=== PATIENT | female | born 1990 | race African-American/Black ===

== ENCOUNTER 2017-08-23 20:11 | Emergency (ER) | payer MEDICAID ==
[~2017-08-23] VITALS: Ht 152.4 cm; Wt 53.5 kg
[2017-08-23] MEDS ORDERED: Ondansetron ODT 8mg tab ORAL ONE (20:45)
--- NOTE | 2017-08-23 20:55 | Emergency Room Report ---
History of Present Illness General Chief Complaint: Abdominal Pain Source: Patient Present Illness HPI Is a 27-year-old female with history of seizure and previous pancreatitis. She presents with chief complaint of abdominal pain. Onset today. Unable to keep anything down. She said she did have 2 beers yesterday. Nausea and vomiting all day. No blood in it. No diarrhea. Pain is sharp and crampy mostly left upper quadrant. Her main concern is that she has seizure and unable to take her Keppra. Pain is 9 out of 10. Allergies: Coded Allergies: AMOXICILLIN (Verified Allergy, Unknown, 08/23/17) PENICILLINS (Verified Allergy, Unknown, 08/23/17) Uncoded Allergies: ALL ABX WITH "CILLINS" (Allergy, Unknown, 08/23/17) Patient History Past Medical History: see triage record, old chart reviewed, seizures Past Surgical History: other Pertinent Family History: none Social History: Denies: smoking Last Menstrual Period: last month, on control Now: No Immunizations: other Reviewed Nursing Documentation: PMH: Agreed; PSxH: Agreed Nursing Documentation-PMH Hx Seizures: Yes Review of Systems Eye: Denies: eye pain, blurred vision ENT: Denies: ear pain, nose congestion, throat swelling Respiratory: Denies: cough, shortness of breath Cardiovascular: Denies: chest pain, palpitations Gastrointestinal: Reports: abdominal pain, nausea, vomiting; Denies: diarrhea Musculoskeletal: Denies: back pain, joint pain Skin: Denies: rash Neurological: Denies: headache, numbness Endocrine: Denies: increased thirst, increased urine Hematologic/Lymphatic: Denies: easy bruising All Other Systems: negative except mentioned in HPI Physical Exam Vital Signs Date Time Temp Pulse Resp B/P (MAP) Pulse Ox O2 Delivery O2 Flow Rate FiO2 08/23/17 20:15 98.5 86 18 134/74 98 Room Air 98.4 vitals normal Sp02 EP Interpretation: reviewed, normal General Appearance: well appearing, no apparent distress, alert Head: normocephalic, atraumatic Eyes: bilateral eye PERRL, bilateral eye EOMI ENT: hearing grossly normal, normal pharynx Neck: full range of motion, supple, no meningismus Respiratory: chest non-tender, lungs clear, normal breath sounds Cardiovascular #1: regular rate, rhythm, no murmur Gastrointestinal: no mass, no organomegaly, no bruit, non-distended, tenderness - left upper quadrant, decreased bowel sounds Musculoskeletal: back normal, gait/station normal, normal range of motion Psychiatric: mood/affect normal Skin: warm/dry Medical Decision Making Diagnostic Impression: Primary Impression: Abdominal pain Qualified Codes: R10.84 - Generalized abdominal pain ER Course Patient with abdominal pain. Now bowel sounds hyperactive and gurgling. Most likely beginning of a gastroenteritis. Pain is well-controlled. No evidence of obstruction. No evidence of acute abdomen. No surgical issue right now. Lab Results Impression labs normal Last Vital Signs Date Time Temp Pulse Resp B/P (MAP) Pulse Ox O2 Delivery O2 Flow Rate FiO2 08/23/17 20:15 98.5 86 18 134/74 98 Room Air 98.4 Status: improved Disposition: HOME, SELF-CARE Condition: Stable Scripts Ondansetron (Zofran) 4 Mg Tablet 4 MG ORAL Q6H PRN for Nausea & Vomiting, #10 TAB 0 Refills Prov: CHASIDY GOODEN M.D. 08/23/17 Hydrocodone/Acetaminophen 5-325* (HYDROCODONE/ACETAMINOPHEN 5-325*) 1 Each Tablet 1 TAB ORAL Q6H PRN for For Pain, #10 TAB 0 Refills Prov: CHASIDY GOODEN M.D. 08/23/17 Patient Instructions: Abdominal Pain, Adult Additional Instructions: Follow-up your DrJeyson in 2-3 days. Return for fever, pain in the right lower quadrant or symptom not better in 12-24 hours. CHASIDY GOODEN M.D. Aug 23, 2017 20:55
[2017-08-23] MEDS ORDERED: levETIRAcetam 1,000mg/NS100ml 100 ML IVPB ONE (21:00)
[2017-08-23] MEDS ORDERED: Morphine Sulfate 4mg/ml Inj IVP ONE ×2 (21:00→22:30)
[2017-08-23 21:20] LABS: APPEARANCE,URINE CLEAR; BILIRUBIN, URINE NEGATIVE (NEGATIVE); GLUCOSE, URINE (UA) NEGATIVE (NEGATIVE); KETONES,URINE 4+ (NEGATIVE); LEUKOCYTE ESTERASE ,URINE 1+ (NEGATIVE); NITRITE,URINE NEGATIVE (NEGATIVE); PH,URINE 6 (4.5-8.0); PROTEIN,URINE 2+ (NEGATIVE); UROBILINOGEN,URINE 1 MG/DL (0.0-1.0)
[2017-08-23 21:21] LABS: COLOR,URINE YELLOW
[2017-08-23 21:46] LABS: BASOPHILS % (AUTO) 1.4 % (0.0-2.0); HEMATOCRIT 42.2 % (37.0-47.0); HEMOGLOBIN 14.5 G/DL (12.0-16.0); LYMPHOCYTES % (AUTO) 11.4 % (20.0-45.0); MEAN CORPUSCULAR VOLUME 84 FL (80-99); MONOCYTES % (AUTO) 4.7 % (1.0-10.0); NEUTROPHILS % (AUTO) 82.4 % (45.0-75.0); PLATELET COUNT 211 K/UL (150-450); RED BLOOD COUNT 5.02 M/UL (4.20-5.40); RED CELL DISTRIBUTION WIDTH 13.7 % (11.6-14.8)
[2017-08-23 21:56] LABS: ANION GAP 12 mmol/L (5-15); BLOOD UREA NITROGEN 12 mg/dL (7-18); CALCIUM 9.5 MG/DL (8.5-10.1); CARBON DIOXIDE 23 MMOL/L (21-32); CHLORIDE 107 MMOL/L (98-107); CREATININE 0.8 MG/DL (0.55-1.30); POTASSIUM 3.4 MMOL/L (3.5-5.1); SODIUM 142 MMOL/L (136-145)
[2017-08-23 22:00] LABS: ALANINE AMINOTRANSFERASE 27 U/L (12-78); ALBUMIN 4.4 G/DL (3.4-5.0); ALBUMIN/GLOBULIN RATIO 1.2 (1.0-2.7); ALKALINE PHOSPHATASE 83 U/L (46-116); ASPARTATE AMINO TRANSFERASE 27 U/L (15-37); BILIRUBIN,TOTAL 0.8 MG/DL (0.2-1.0)
[2017-08-23] MEDS ORDERED: HYDROCODON-ACE1 EA15 ORAL (22:58)
[2017-08-23] MEDS ORDERED: ZOFRAN4 MG ORAL (22:58)
[2017-08-23 23:08] VITALS: BP 105/67
== END 2017-08-23 23:11 | disposition home or self-care (01) ==
LOC: EMR 20:58
DX: R10.9 Unspecified abdominal pain (principal); R11.2 Nausea with vomiting, unspecified; Z88.0 Allergy status to penicillin
CPT/HCPCS: 36415; 80053; 81003; 81025; 83690; 85025; 96365; 96375; 96376; 99284; J1953; J2270; J2405

== ENCOUNTER 2017-08-25 10:09 | Inpatient (IN) | payer MEDICAID ==
[~2017-08-25] VITALS: Ht 154.9 cm; Wt 54.0 kg
[~2017-08-25 10:09] MED LIST: HYDROCODON-ACE1 EA15 ORAL; ZOFRAN4 MG ORAL
[2017-08-25] MEDS ORDERED: KEPPRA750 MG ORAL (10:25)
[2017-08-25 10:27] VITALS: BP 131/77
[2017-08-25] MEDS ORDERED: Isovue-300 100ml vial INJ PRN (10:45)
[2017-08-25 11:03] LABS: APPEARANCE,URINE CLOUDY; BILIRUBIN, URINE NEGATIVE (NEGATIVE); GLUCOSE, URINE (UA) NEGATIVE (NEGATIVE); KETONES,URINE NEGATIVE (NEGATIVE); LEUKOCYTE ESTERASE ,URINE 1+ (NEGATIVE); NITRITE,URINE NEGATIVE (NEGATIVE); PH,URINE 6.5 (4.5-8.0); PROTEIN,URINE NEGATIVE (NEGATIVE); UROBILINOGEN,URINE 1 MG/DL (0.0-1.0)
[2017-08-25 11:09] LABS: COLOR,URINE YELLOW
[2017-08-25 11:17] LABS: ANION GAP 9 mmol/L (5-15); BLOOD UREA NITROGEN 5 mg/dL (7-18); CALCIUM 9.1 MG/DL (8.5-10.1); CARBON DIOXIDE 24 MMOL/L (21-32); CHLORIDE 109 MMOL/L (98-107); CREATININE 0.8 MG/DL (0.55-1.30); POTASSIUM 3.4 MMOL/L (3.5-5.1); SODIUM 142 MMOL/L (136-145)
[2017-08-25 11:21] LABS: BASOPHILS % (AUTO) 2.1 % (0.0-2.0); EOSINOPHILS % (AUTO) 0.5 % (0.0-3.0); HEMATOCRIT 39.5 % (37.0-47.0); HEMOGLOBIN 13.3 G/DL (12.0-16.0); LYMPHOCYTES % (AUTO) 35.2 % (20.0-45.0); MEAN CORPUSCULAR VOLUME 85 FL (80-99); MONOCYTES % (AUTO) 10.3 % (1.0-10.0); PLATELET COUNT 184 K/UL (150-450); RED BLOOD COUNT 4.64 M/UL (4.20-5.40); RED CELL DISTRIBUTION WIDTH 13.4 % (11.6-14.8); WHITE BLOOD COUNT 5.7 K/UL (4.8-10.8)
[2017-08-25 11:22] LABS: ALANINE AMINOTRANSFERASE 21 U/L (12-78); ALBUMIN 3.6 G/DL (3.4-5.0); ALBUMIN/GLOBULIN RATIO 1.1 (1.0-2.7); ALKALINE PHOSPHATASE 70 U/L (46-116); ASPARTATE AMINO TRANSFERASE 15 U/L (15-37); BILIRUBIN,TOTAL 0.9 MG/DL (0.2-1.0)
[2017-08-25] MEDS ORDERED: Morphine Sulfate 4mg/ml Inj IVP ONE ×3 (11:45→17:00)
[2017-08-25] MEDS ORDERED: Ketorolac 30mg Inj IV ONE (11:45)
--- NOTE | 2017-08-25 12:25 | Diagnostic Imaging Report ---
Clinical Indication: Abdominal pain Technique: No oral contrast utilized, per emergency room physician request IV administration nonionic contrast. Venous phase spiral acquisition obtained through the abdomen and pelvis. Multiplanar reconstructions were generated. Total dose length product 460.9 mGycm. CTDIvol(s) 10.08 mGy. Dose reduction achieved using automated exposure control Comparison: none Findings: There is a small amount of free pelvic fluid. There are colonic diverticula. No evidence of diverticulitis. The appendix is normal. Distal esophagus, stomach, duodenum are unremarkable. No small bowel distention. No free intraperitoneal air. The liver demonstrates mild periportal edema. The gallbladder, bile ducts, pancreas, spleen, adrenals, kidneys are unremarkable. No retroperitoneal or mesenteric mass or adenopathy. No pelvic mass or adenopathy. The bones demonstrate a surgical screw fusing the sacrum with the posterior bilateral iliac bones. The included lung bases are clear. Impression: Small amount of free pelvic fluid. Most likely physiologic in a reproductive age female Periportal edema. This is a nonspecific finding, can be seen in acute hepatitis, congestive heart failure, cholangitis, among other etiologies Colonic diverticulosis Evidence of prior sacroiliac fusion The CT scanner at [facility] is accredited by the [employer] and the scans are performed using protocols designed to limit radiation exposure to as low as reasonably achievable to attain images of sufficient resolution adequate for diagnostic evaluation.
[2017-08-25 12:30] VITALS: BP 116/63
[2017-08-25 15:00] VITALS: BP 108/66
--- NOTE | 2017-08-25 16:07 | Diagnostic Imaging Report ---
Indication: Abdominal pain, nausea, abnormal lipase Technique: Pool-scale and duplex images of the upper abdomen were obtained Comparison: none Findings: Gallbladder is unremarkable, without stones, wall thickening, nor pericholecystic fluid. Sonographic Luevano's sign is negative. Common bile duct measures mm in diameter. No intrahepatic biliary ductal dilatation. Liver demonstrates normal echogenicity, no focal abnormality. Portal vein and hepatic veins are patent. Pancreas is unremarkable. Spleen is unremarkable. Left kidney measures 9.6 cm in length. Right kidney measures 9.2 cm length. Both kidneys demonstrate normal echogenicity. There is no hydronephrosis. No focal abnormality . Non-aneurysmal abdominal aorta . Impression: Negative
--- NOTE | 2017-08-25 16:11 | Diagnostic Imaging Report ---
Indication: Pelvic pain, negative test Technique: Transabdominal and transvaginal images Comparison: none Findings: Uterus measures 6 cm length by 2.5 cm AP. The endometrium measures 4 mm thick, contains fluid. No myometrial abnormality. Moderate amount of free cul-de-sac fluid is demonstrated. Right ovary measures 1.9 cm in length. Left ovary measures 2 cm in length. No adnexal mass demonstrated. Impression: Nonspecific fluid within the endometrium. Could represent old blood, among other possibilities Moderate free pelvic fluid
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
[2017-08-25 17:00] VITALS: BP 128/93
[2017-08-25 20:00] VITALS: BP 117/58
[2017-08-25] MEDS ORDERED: Morphine Sulfate 2mg/ml Inj IVP PRN (20:15)
[2017-08-25] MEDS: Morphine Sulfate 4mg/ml Inj IVP PRN (20:56)
[2017-08-26] VITALS: BP 136/73
[2017-08-26] MEDS: Morphine Sulfate 4mg/ml Inj IVP PRN ×3 (00:20→06:40)
[2017-08-26 04:00] VITALS: BP 117/65
[2017-08-26 06:30] LABS: BASOPHILS % (AUTO) 1.1 % (0.0-2.0); EOSINOPHILS % (AUTO) 0.5 % (0.0-3.0); HEMATOCRIT 34.2 % (37.0-47.0); HEMOGLOBIN 11.7 G/DL (12.0-16.0); LYMPHOCYTES % (AUTO) 34.9 % (20.0-45.0); MEAN CORPUSCULAR VOLUME 85 FL (80-99); MONOCYTES % (AUTO) 9.8 % (1.0-10.0); NEUTROPHILS % (AUTO) 53.7 % (45.0-75.0); PLATELET COUNT 150 K/UL (150-450); RED BLOOD COUNT 4.01 M/UL (4.20-5.40); RED CELL DISTRIBUTION WIDTH 13.2 % (11.6-14.8); WHITE BLOOD COUNT 6.4 K/UL (4.8-10.8)
[2017-08-26 06:56] LABS: ALANINE AMINOTRANSFERASE 20 U/L (12-78); ALBUMIN/GLOBULIN RATIO 1.1 (1.0-2.7); ALKALINE PHOSPHATASE 59 U/L (46-116); AMYLASE 74 U/L (25-115); ANION GAP 10 mmol/L (5-15); ASPARTATE AMINO TRANSFERASE 15 U/L (15-37); BILIRUBIN,TOTAL 0.7 MG/DL (0.2-1.0); BLOOD UREA NITROGEN 4 mg/dL (7-18); CALCIUM 8.4 MG/DL (8.5-10.1); CARBON DIOXIDE 22 MMOL/L (21-32); CHLORIDE 110 MMOL/L (98-107); CREATININE 0.6 MG/DL (0.55-1.30); SODIUM 142 MMOL/L (136-145)
[2017-08-26 08:00] VITALS: BP 108/56
[2017-08-26] MEDS ORDERED: Norco 5mg/325mg tab ORAL PRN (11:45)
[2017-08-26 12:00] VITALS: BP 100/71
[2017-08-26] MEDS: Norco 5mg/325mg tab ORAL PRN ×3 (12:17→20:45)
[2017-08-26 16:00] VITALS: BP 104/54
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
[2017-08-26 20:00] VITALS: BP 138/79
[2017-08-27] VITALS: BP 133/81
[2017-08-27] MEDS: Norco 5mg/325mg tab ORAL PRN (03:28)
[2017-08-27 04:00] VITALS: BP 124/59
[2017-08-27 08:00] VITALS: BP 136/72
--- NOTE | 2017-08-27 09:42 | General Progress Note ---
Assessment/Plan Assessment/Plan 1. Pancreatitis, resolved. 2. Chronic narcotic dependence. 3. Nausea and vomiting. 4. Seizure disorder. PLAN maintain clears x 72 hours after dc zofran PRN monitor opiod use return to ER if symptoms recur or worsen stable for dc and tolerating diet follow up with PMD for further intervention and referrals Subjective Allergies: Coded Allergies: AMOXICILLIN (Verified Allergy, Unknown, 08/23/17) PENICILLINS (Verified Allergy, Unknown, 08/23/17) Uncoded Allergies: ALL ABX WITH "CILLINS" (Allergy, Unknown, 08/23/17) Subjective dc held some nausea Objective Last 24 Hour Vital Signs Date Time Temp Pulse Resp B/P (MAP) Pulse Ox O2 Delivery O2 Flow Rate FiO2 08/27/17 04:00 99.0 60 18 124/59 (80) 99 99.0 08/27/17 00:00 99.3 68 18 133/81 (98) 100 99.3 08/26/17 21:00 Room Air 08/26/17 20:00 99.3 63 18 138/79 (98) 100 99.3 08/26/17 16:00 97.6 68 21 104/54 (71) 97 97.6 08/26/17 12:00 97.9 62 20 100/71 (81) 97 97.9 Intake and Output 08/26/17 08/27/17 19:00 07:00 Intake Total 1800 ml 1150 ml Balance 1800 ml 1150 ml Intake Oral 600 ml 250 ml IV Total 1200 ml 900 ml # Voids 3 2 Height (Feet): 5 Height (Inches): 1.00 Weight (Pounds): 119 Objective WDWN NAD clear breath sounds bilaterally without rhonchi or wheeze [id number] without MRG NABS nontender no HSM no CCE nonfocal Dallin Clemons MD Aug 27, 2017 09:42
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
== END 2017-08-27 11:20 | disposition home or self-care (01) | DRG 282 ==
LOC: EMR 11:00 → 4E 16:30 → EDBEDREQ 16:45
DX: K85.90 Acute pancreatitis without necrosis or infection, unspecified (principal); F11.20 Opioid dependence, uncomplicated; R11.2 Nausea with vomiting, unspecified; G40.909 Epilepsy, unspecified, not intractable, without status epilepticus; Z88.0 Allergy status to penicillin; Z88.1 Allergy status to other antibiotic agents
CPT/HCPCS: 36415; 74177; 76700; 76830; 76856; 80053; 80299; 81003; 82150; 83690; 84702; 85025; 99285; J2405

== ENCOUNTER 2018-02-07 12:24 | Emergency (ER) | payer MEDICAID ==
[~2018-02-07] VITALS: Ht 152.4 cm; Wt 53.5 kg
[~2018-02-07 12:24] MED LIST changes: +KEPPRA750 MG ORAL
--- NOTE | 2018-02-07 12:49 | NUR ---
ED Nurse Note: Pt came in for n,v, d since this morning 0630. 09/15 abdominal pain. Has seizure meds. Couldn't take seizure med due to cannot hold anything down.
[2018-02-07] MEDS ORDERED: levETIRAcetam 1,000mg/NS100ml 100 ML IVPB ONE (13:00)
[2018-02-07] MEDS ORDERED: Dicyclomine HCl 10mg/5ml oral soln ORAL ONE (13:00)
[2018-02-07] MEDS ORDERED: Lidocaine 2% Visc 15ml soln ORAL ONE (13:00)
[2018-02-07] MEDS ORDERED: Mylanta II UD 30ml ORAL ONE (13:00)
--- NOTE | 2018-02-07 13:01 | Emergency Room Report ---
History of Present Illness General Chief Complaint: Nausea, Vomiting, and Diarrhea Source: Patient Present Illness HPI 27-year-old female patient presents the ER complaining of vomiting diarrhea and generalized abdominal pain since this morning. Reports she woke up began expressing vomiting diarrhea symptoms. Reports that she was drinking alcohol last night. Reports history of pancreatitis, states that this usually happens when she drinks alcohol. States that she came to the ER because of concern about not being able to take her seizure medication due to vomiting symptoms. Reports that she normally takes Keppra 750 mg twice daily. Denies seizure recently. Denies hitting her head or loss consciousness. Denies blood in vomit or stool. Denies recent travel. Denies contacts with similar symptoms. Allergies: Coded Allergies: AMOXICILLIN (Verified Allergy, Unknown, 08/23/17) PENICILLINS (Verified Allergy, Unknown, 08/23/17) Uncoded Allergies: ALL ABX WITH "CILLINS" (Allergy, Unknown, 08/23/17) Patient History Past Medical History: see triage record Last Menstrual Period: 01/26/2018 Now: No Reviewed Nursing Documentation: PMH: Agreed; PSxH: Agreed Nursing Documentation-PMH Past Medical History: No History, Except For Hx Cardiac Problems: No - pancreatitis, meningitis Hx Meningitis: Yes Hx Seizures: Yes - last seizure 18 month ago Review of Systems All Other Systems: negative except mentioned in HPI Physical Exam Vital Signs Date Time Temp Pulse Resp B/P (MAP) Pulse Ox O2 Delivery O2 Flow Rate FiO2 02/07/18 12:36 98.8 69 17 120/73 97 Room Air Sp02 EP Interpretation: reviewed, normal General Appearance: well appearing, no apparent distress, alert, GCS 15, non- toxic Head: normocephalic, atraumatic Eyes: bilateral eye normal inspection, bilateral eye PERRL ENT: hearing grossly normal, normal pharynx, no angioedema, normal voice, uvula midline, moist mucus membranes Neck: full range of motion Respiratory: lungs clear, normal breath sounds, no rhonchi, no respiratory distress, no accessory muscle use, no wheezing, speaking full sentences Cardiovascular #1: regular rate, rhythm, no edema Gastrointestinal: normal bowel sounds, non tender, soft, no mass, non-distended , no guarding, no rebound Genitourinary: no CVA tenderness Musculoskeletal: back normal, digits/nails normal, gait/station normal, normal range of motion, non-tender Neurologic: alert, oriented x3, responsive, motor strength/tone normal, sensory intact Psychiatric: mood/affect normal Skin: no rash Medical Decision Making PA Attestation Dr. Montoya is my supervising Physician whom patient management has been discussed with. Diagnostic Impression: Primary Impression: Nausea, vomiting, and diarrhea Additional Impression: Hx of seizure disorder ER Course Pt. presents to the ED c/o abdominal pain and vomiting. Ddx considered but are not limited to UTI, cholelithiasis, cholecystitis, pancreatitis, appendicitis, diverticulitis, constipation, drug use. Begin abdominal pain workup. Provided patient with pain medication. No abdominal tenderness palpation, we will not order CT or US imaging at this time. Vital signs: are WNL, pt. is afebrile ORDERS: CBC, CMP, Lipase, UA, CT abdomen pelvis, Zofran, Pepcid and medication. ER COURSE: Provide patient with IV Keppra due to concern about not being able to tolerate p.o. medications, will check lab levels. Provided with IV fluids. CBC shows mild elevation in WBCs, possibly related to pain and vomiting sx, patient afebrile, does not require abx at this time. CMP unremarkable Lipase WNL UA unremarkable, no signs of infection, denies dysuria, hematuria, does not require abx at this time. Urine negative Discuss results with patient Levetiracetam labs pending, send out. No fever, no blood in stool, no recent travel or hospitalizations, does not require abx treatment at this time. No signs of dehydration, moist mucus membranes, cap refill <2seconds, normal skin turgor. Patient reports eating and drinking normally. Patient able to tolerate PO fluids while in the ER. Takes seizure medications as instructed. Drink fluids as tolerated to prevent dehydration. Patient reports relief of pain symptoms with medication. ER precautions given. DISCHARGE: Rx provided for Tylenol Rx provided for Zofran At this time pt. is stable for d/c to home. Patient resting comfortably, in no acute distress, nontoxic appearing, talking without difficulty. Rx provided to patient. Patient to take medications as instructed Will provide with patient care instructions and any necessary prescriptions. Care plan and follow-up instructions provided. Patient instructed to follow-up with primary care provider in 3 - 5 days. Patient questions asked and answered. Patient reports understanding and agreement to treatment plan. ER precautions given. Patient instructed to return to ER immediately for any new or worsening of symptoms including but not limited to increasing SOB, persistent fever, worsening of pain symptoms, intractable vomiting, blood in stool, urine, and/or emesis. - Please note that this Emergency Department Report was dictated using [employer]usarresting gear operator technology software, occasionally this can lead to erroneous entry secondary to interpretation by the dictation equipment. Labs Test 02/07/18 12:10 White Blood Count 11.0 K/UL (4.8-10.8) Red Blood Count 4.94 M/UL (4.20-5.40) Hemoglobin 14.9 G/DL (12.0-16.0) Hematocrit 43.8 % (37.0-47.0) Mean Corpuscular Volume 89 FL (80-99) Mean Corpuscular Hemoglobin 30.1 PG (27.0-31.0) Mean Corpuscular Hemoglobin Concent 34.0 G/DL (32.0-36.0) Red Cell Distribution Width 12.6 % (11.6-14.8) Platelet Count 246 K/UL (150-450) Mean Platelet Volume 9.2 FL (6.5-10.1) Neutrophils (%) (Auto) 75.2 % (45.0-75.0) Lymphocytes (%) (Auto) 14.5 % (20.0-45.0) Monocytes (%) (Auto) 7.7 % (1.0-10.0) Eosinophils (%) (Auto) 0.0 % (0.0-3.0) Basophils (%) (Auto) 2.6 % (0.0-2.0) Urine Color Yellow Urine Appearance Cloudy Urine pH 6 (4.5-8.0) Urine Specific [place] 1.020 (1.005-1.035) Urine Protein 2+ (NEGATIVE) Urine Glucose (UA) Negative (NEGATIVE) Urine Ketones 1+ (NEGATIVE) Urine Blood Negative (NEGATIVE) Urine Nitrite Negative (NEGATIVE) Urine Bilirubin Negative (NEGATIVE) Urine Urobilinogen 1 MG/DL (0.0-1.0) Urine Leukocyte Esterase 1+ (NEGATIVE) Urine RBC 0 /HPF (0 - 2) Urine WBC 0-2 /HPF (0 - 2) Urine Squamous Epithelial Cells Few /LPF (NONE/OCC) Urine Amorphous Sediment Many /LPF (NONE) Urine Bacteria Few /HPF (NONE) Urine HCG, Qualitative Negative (NEGATIVE) Sodium Level 145 MMOL/L (136-145) Potassium Level 3.9 MMOL/L (3.5-5.1) Chloride Level 107 MMOL/L (98-107) Carbon Dioxide Level 28 MMOL/L (21-32) Anion Gap 10 mmol/L (5-15) Blood Urea Nitrogen 10 mg/dL (7-18) Creatinine 0.9 MG/DL (0.55-1.30) Estimat Glomerular Filtration Rate > 60 mL/min (>60) Glucose Level 97 MG/DL (74-106) Calcium Level 9.7 MG/DL (8.5-10.1) Total Bilirubin 0.7 MG/DL (0.2-1.0) Aspartate Amino Transf (AST/SGOT) 16 U/L (15-37) Alanine Aminotransferase (ALT/SGPT) 19 U/L (12-78) Alkaline Phosphatase 89 U/L (46-116) Total Protein 8.3 G/DL (6.4-8.2) Albumin 4.3 G/DL (3.4-5.0) Globulin 4.0 g/dL Albumin/Globulin Ratio 1.1 (1.0-2.7) Lipase 218 U/L (73-393) Last Vital Signs Date Time Temp Pulse Resp B/P (MAP) Pulse Ox O2 Delivery O2 Flow Rate FiO2 02/07/18 12:36 98.8 69 17 120/73 97 Room Air Status: improved Disposition: HOME, SELF-CARE Condition: Stable Scripts Ondansetron* (ZOFRAN*) 4 Mg Tablet 4 MG ORAL Q6H PRN for Nausea & Vomiting, #8 TAB Prov: Thomas Winters P.A. 02/07/18 Acetaminophen* (TYLENOL EXTRA STRENGTH*) 500 Mg Tablet 500 MG ORAL Q8H PRN for Prn Headache/Temp > 101, #30 TAB 0 Refills Prov: Thomas Winters P.A. 02/07/18 Patient Instructions: Viral Gastroenteritis, Adult, [id number] Additional Instructions: followup with primary care provider in 3 -5 days. Avoid spicy foods, avoid dairy foods. BRAT diet: bananas, rice, apple sauce, toast. Consider Immodium for diarrhea and Tylenol for pain symptoms. Take medications as directed. Patient questions asked and answered. ER precautions given, patient instructed to return to ER immediately for any new or worsening of symptoms. Thomas Winters Feb 07, 2018 13:01
[2018-02-07 13:25] LABS: BASOPHILS % (AUTO) 2.6 % (0.0-2.0); HEMATOCRIT 43.8 % (37.0-47.0); HEMOGLOBIN 14.9 G/DL (12.0-16.0); LYMPHOCYTES % (AUTO) 14.5 % (20.0-45.0); MEAN CORPUSCULAR VOLUME 89 FL (80-99); MONOCYTES % (AUTO) 7.7 % (1.0-10.0); NEUTROPHILS % (AUTO) 75.2 % (45.0-75.0); PLATELET COUNT 246 K/UL (150-450); RED BLOOD COUNT 4.94 M/UL (4.20-5.40); RED CELL DISTRIBUTION WIDTH 12.6 % (11.6-14.8)
[2018-02-07 13:27] LABS: ANION GAP 10 mmol/L (5-15); BLOOD UREA NITROGEN 10 mg/dL (7-18); CALCIUM 9.7 MG/DL (8.5-10.1); CARBON DIOXIDE 28 MMOL/L (21-32); CHLORIDE 107 MMOL/L (98-107); CREATININE 0.9 MG/DL (0.55-1.30); POTASSIUM 3.9 MMOL/L (3.5-5.1); SODIUM 145 MMOL/L (136-145)
[2018-02-07 13:31] LABS: ALANINE AMINOTRANSFERASE 19 U/L (12-78); ALBUMIN 4.3 G/DL (3.4-5.0); ALBUMIN/GLOBULIN RATIO 1.1 (1.0-2.7); ALKALINE PHOSPHATASE 89 U/L (46-116); ASPARTATE AMINO TRANSFERASE 16 U/L (15-37); BILIRUBIN,TOTAL 0.7 MG/DL (0.2-1.0)
[2018-02-07 13:36] LABS: APPEARANCE,URINE CLOUDY; BILIRUBIN, URINE NEGATIVE (NEGATIVE); GLUCOSE, URINE (UA) NEGATIVE (NEGATIVE); KETONES,URINE 1+ (NEGATIVE); LEUKOCYTE ESTERASE ,URINE 1+ (NEGATIVE); NITRITE,URINE NEGATIVE (NEGATIVE); PH,URINE 6 (4.5-8.0); PROTEIN,URINE 2+ (NEGATIVE); UROBILINOGEN,URINE 1 MG/DL (0.0-1.0)
[2018-02-07 13:40] LABS: COLOR,URINE YELLOW
[2018-02-07 14:36] VITALS: BP 120/73
[2018-02-07] MEDS ORDERED: ZOFRAN4 M3 ORAL (15:20)
[2018-02-07] MEDS ORDERED: TYLENOL EXTRA500 MG ORAL (15:20)
[2018-02-07 16:03] VITALS: BP 125/75
--- NOTE | 2018-02-07 16:04 | NUR ---
ED Nurse Note: Discharge instructions given to pt. Answered all questions. Verbalized understanding. A + O x4. Ambulatory. ID band and Iv site removed. Left with all belongings. Left ER w/ steady gait.
== END 2018-02-07 15:26 | disposition home or self-care (01) ==
LOC: EMR 13:09
DX: R11.2 Nausea with vomiting, unspecified (principal); R19.7 Diarrhea, unspecified; G40.909 Epilepsy, unspecified, not intractable, without status epilepticus; Z88.0 Allergy status to penicillin
CPT/HCPCS: 36415; 80053; 80299; 81003; 81025; 83690; 85025; 96361; 96374; 96375; 99284; J1953; J2405; S0028

== ENCOUNTER 2018-05-08 10:43 | Emergency (ER) | payer MEDICAID ==
[~2018-05-08] VITALS: Ht 172.7 cm; Wt 53.5 kg
[~2018-05-08 10:43] MED LIST changes: +TYLENOL EXTRA500 MG ORAL; +ZOFRAN4 M3 ORAL
--- NOTE | 2018-05-08 10:51 | NUR ---
ED Nurse Note: PT WALKED IN TO ER TODAY FROM HOME. AOX4. PT C/O RIGHT LOWER QUADRANT ABDOMINAL PAIN, 8/10 X THIS AM ACCOMPANIED BY NAUSEA, MULTIPLE EPISODES OF VOMITING AND 3 EPISODES OF DIARRHEA. ACTIVE BOWEL SOUNDS IN ALL QUADRANTS. ABDOMEN NONDISTENDED BUT PT C/O TENDERNESS WITH PALPATION IN RLQ OF ABDOMEN.
--- NOTE | 2018-05-08 10:53 | NUR ---
Note violeta in EDM - 05/08/18 at 1229 by NOEMY ED Nurse Note: OF NOTE, PT STATES SHE HAS HX OF SEIZURES AND HAS BEEN UNABLE TO TAKE KEPPRA TODAY DUE TO NAUSEA AND VOMITING. SEIZURE PROTOCOL IN PLACE.
--- NOTE | 2018-05-08 10:53 | NUR ---
ED Nurse Note: OF NOTE, PT STATES SHE HAS HX OF SEIZURES AND HAS BEEN UNABLE TO TAKE KEPPRA TODAY DUE TO NAUSEA AND VOMITING. SEIZURE PROTOCOL IN PLACE. DR. RESENDEZ NOTIFIED.
[2018-05-08 10:54] VITALS: BP 132/80
--- NOTE | 2018-05-08 11:02 | Emergency Room Report ---
History of Present Illness General Chief Complaint: Abdominal Pain Source: Patient Present Illness HPI Patient presents with reports of vomiting and diarrhea this morning Reports that she was unable take her Keppra and therefore presents to the ER She feels that she might have eaten something bad yesterday as this morning she threw up essentially what she had eaten last night Denies any fevers or chills denies any chest pain Denies any dysuria or frequency Allergies: Coded Allergies: AMOXICILLIN (Verified Allergy, Unknown, 08/23/17) PENICILLINS (Verified Allergy, Unknown, 08/23/17) Uncoded Allergies: ALL ABX WITH "CILLINS" (Allergy, Unknown, 08/23/17) Patient History Past Medical History: see triage record Pertinent Family History: none Last Menstrual Period: Now: No Reviewed Nursing Documentation: PMH: Agreed; PSxH: Agreed Nursing Documentation-PMH Past Medical History: No History, Except For Hx Cardiac Problems: No - pancreatitis, meningitis Hx Meningitis: Yes Hx Seizures: Yes - last seizure 18 month ago Review of Systems All Other Systems: negative except mentioned in HPI Physical Exam Vital Signs Date Time Temp Pulse Resp B/P (MAP) Pulse Ox O2 Delivery O2 Flow Rate FiO2 05/08/18 10:44 97.9 62 17 131/85 98 Room Air Sp02 EP Interpretation: reviewed, normal General Appearance: well appearing, no apparent distress Head: normocephalic, atraumatic Eyes: bilateral eye PERRL, bilateral eye EOMI ENT: hearing grossly normal, normal pharynx, TMs + canals normal, uvula midline Neck: full range of motion, supple, no meningismus, no bony tend Respiratory: lungs clear, normal breath sounds, no rhonchi, no respiratory distress, no retraction, no accessory muscle use Cardiovascular #1: normal peripheral pulses, regular rate, rhythm, no edema, no gallop, no JVD, no murmur Gastrointestinal: normal bowel sounds, non tender, soft, no mass, no organomegaly, non-distended, no guarding, no hernia, no pulsatile mass, no rebound Genitourinary: no CVA tenderness Musculoskeletal: normal inspection Neurologic: oriented x3, responsive, newsstand vendor III-XII nml as tested, motor strength/ tone normal, sensory intact Psychiatric: mood/affect normal Skin: normal color, no rash, warm/dry, palpation normal Lymphatic: normal inspection, no adenopathy Medical Decision Making Diagnostic Impression: Primary Impression: Vomiting ER Course With the patient's history and examination, multiple differentials considered, including but not limited to , ectopic , ovarian torsion, gastritis, cholecystitis, pancreatitis, appendicitis Patient's discomfort appears to be localizing to epigastric region At this time remains appropriate without any signs of vomiting acutely Patient provided medication here Patient requesting that she has not been able to keep anything down And needs IV Keppra I feel patient is stable for oral Keppra at home as her symptoms continue to improve And is discharged for close outpatient follow-up Labs Test 05/08/18 11:05 05/08/18 11:19 White Blood Count 9.0 K/UL (4.8-10.8) Red Blood Count 5.28 M/UL (4.20-5.40) Hemoglobin 15.8 G/DL (12.0-16.0) Hematocrit 45.8 % (37.0-47.0) Mean Corpuscular Volume 87 FL (80-99) Mean Corpuscular Hemoglobin 30.0 PG (27.0-31.0) Mean Corpuscular Hemoglobin Concent 34.6 G/DL (32.0-36.0) Red Cell Distribution Width 13.0 % (11.6-14.8) Platelet Count 209 K/UL (150-450) Mean Platelet Volume 9.5 FL (6.5-10.1) Neutrophils (%) (Auto) 74.5 % (45.0-75.0) Lymphocytes (%) (Auto) 16.5 % (20.0-45.0) Monocytes (%) (Auto) 8.2 % (1.0-10.0) Eosinophils (%) (Auto) 0.1 % (0.0-3.0) Basophils (%) (Auto) 0.8 % (0.0-2.0) Sodium Level 146 MMOL/L (136-145) Potassium Level 3.9 MMOL/L (3.5-5.1) Chloride Level 109 MMOL/L (98-107) Carbon Dioxide Level 22 MMOL/L (21-32) Anion Gap 15 mmol/L (5-15) Blood Urea Nitrogen 8 mg/dL (7-18) Creatinine 0.9 MG/DL (0.55-1.30) Estimat Glomerular Filtration Rate > 60 mL/min (>60) Glucose Level 96 MG/DL (74-106) Calcium Level 9.7 MG/DL (8.5-10.1) Total Bilirubin 0.5 MG/DL (0.2-1.0) Aspartate Amino Transf (AST/SGOT) 12 U/L (15-37) Alanine Aminotransferase (ALT/SGPT) 15 U/L (12-78) Alkaline Phosphatase 85 U/L (46-116) Total Protein 7.9 G/DL (6.4-8.2) Albumin 4.2 G/DL (3.4-5.0) Globulin 3.7 g/dL Albumin/Globulin Ratio 1.1 (1.0-2.7) Urine Color Yellow Urine Appearance Clear Urine pH 6.5 (4.5-8.0) Urine Specific [place] 1.015 (1.005-1.035) Urine Protein 1+ (NEGATIVE) Urine Glucose (UA) Negative (NEGATIVE) Urine Ketones 2+ (NEGATIVE) Urine Blood Negative (NEGATIVE) Urine Nitrite Negative (NEGATIVE) Urine Bilirubin Negative (NEGATIVE) Urine Urobilinogen 1 MG/DL (0.0-1.0) Urine Leukocyte Esterase 1+ (NEGATIVE) Urine RBC 2-4 /HPF (0 - 2) Urine WBC 5-10 /HPF (0 - 2) Urine Squamous Epithelial Cells Moderate /LPF (NONE/OCC) Urine Amorphous Sediment Few /LPF (NONE) Urine Bacteria Few /HPF (NONE) Urine Mucus Moderate /LPF (NONE/OCC) Urine HCG, Qualitative Negative (NEGATIVE) Urine Opiates Screen Negative (NEGATIVE) Urine Barbiturates Screen Negative (NEGATIVE) Phencyclidine (PCP) Screen Negative (NEGATIVE) Urine Amphetamines Screen Negative (NEGATIVE) Urine Benzodiazepines Screen Negative (NEGATIVE) Urine Cocaine Screen Negative (NEGATIVE) Urine Marijuana (THC) Screen Positive (NEGATIVE) Last Vital Signs Date Time Temp Pulse Resp B/P (MAP) Pulse Ox O2 Delivery O2 Flow Rate FiO2 05/08/18 10:54 62 17 Room Air 05/08/18 10:54 98.1 132/80 100 Status: improved Disposition: HOME, SELF-CARE Condition: Improved Scripts Ondansetron* (ZOFRAN*) 4 Mg Tablet 4 MG ORAL Q12HR PRN for Nausea & Vomiting, #7 TAB Prov: Alisa Vuong DO 05/08/18 Additional Instructions: Patient is provided with the discharge instructions notified to follow up with primary doctor in the next 2-3 days otherwise return to the er with any worsening symptoms. Please note that this report is being documented using [employer] technology. This can lead to erroneous entry secondary to incorrect interpretation by the dictating instrument. Alisa Vuong DO May 08, 2018 11:02
[2018-05-08 11:13] LABS: BASOPHILS % (AUTO) 0.8 % (0.0-2.0); EOSINOPHILS % (AUTO) 0.1 % (0.0-3.0); HEMATOCRIT 45.8 % (37.0-47.0); HEMOGLOBIN 15.8 G/DL (12.0-16.0); LYMPHOCYTES % (AUTO) 16.5 % (20.0-45.0); MEAN CORPUSCULAR VOLUME 87 FL (80-99); MONOCYTES % (AUTO) 8.2 % (1.0-10.0); NEUTROPHILS % (AUTO) 74.5 % (45.0-75.0); PLATELET COUNT 209 K/UL (150-450); RED BLOOD COUNT 5.28 M/UL (4.20-5.40)
[2018-05-08 11:24] LABS: ANION GAP 15 mmol/L (5-15); BLOOD UREA NITROGEN 8 mg/dL (7-18); CALCIUM 9.7 MG/DL (8.5-10.1); CARBON DIOXIDE 22 MMOL/L (21-32); CHLORIDE 109 MMOL/L (98-107); CREATININE 0.9 MG/DL (0.55-1.30); POTASSIUM 3.9 MMOL/L (3.5-5.1); SODIUM 146 MMOL/L (136-145)
[2018-05-08 11:29] LABS: ALANINE AMINOTRANSFERASE 15 U/L (12-78); ALBUMIN 4.2 G/DL (3.4-5.0); ALBUMIN/GLOBULIN RATIO 1.1 (1.0-2.7); ALKALINE PHOSPHATASE 85 U/L (46-116); ASPARTATE AMINO TRANSFERASE 12 U/L (15-37); BILIRUBIN,TOTAL 0.5 MG/DL (0.2-1.0)
[2018-05-08 11:35] LABS: APPEARANCE,URINE CLEAR; BILIRUBIN, URINE NEGATIVE (NEGATIVE); GLUCOSE, URINE (UA) NEGATIVE (NEGATIVE); KETONES,URINE 2+ (NEGATIVE); LEUKOCYTE ESTERASE ,URINE 1+ (NEGATIVE); NITRITE,URINE NEGATIVE (NEGATIVE); PH,URINE 6.5 (4.5-8.0); PROTEIN,URINE 1+ (NEGATIVE); UROBILINOGEN,URINE 1 MG/DL (0.0-1.0)
[2018-05-08 11:38] LABS: COLOR,URINE YELLOW
[2018-05-08] MEDS ORDERED: Dicyclomine HCl 10mg/5ml oral soln ORAL ONE (12:15)
[2018-05-08] MEDS ORDERED: ZOFRAN4 M3 ORAL (12:41)
[2018-05-08 12:49] VITALS: BP 128/62
== END 2018-05-08 12:55 | disposition home or self-care (01) ==
LOC: EMR 11:10
DX: R11.10 Vomiting, unspecified (principal); R19.7 Diarrhea, unspecified; Z86.61 Personal history of infections of the central nervous system; G40.909 Epilepsy, unspecified, not intractable, without status epilepticus; Z88.0 Allergy status to penicillin
CPT/HCPCS: 36415; 80053; 80307; 81003; 81025; 85025; 99283